=== PATIENT | female | born 1975 | race Asian ===

== ENCOUNTER → 2018-06-17 10:48 | Outpatient (CLI) | payer OTHER, SELFPAY ==
--- NOTE | 2018-06-17 | DI.MG.S_ITS ---
BILATERAL DIGITAL SCREENING MAMMOGRAM 3D/2D WITH CAD: 06/17/2018 CLINICAL: Routine screening. Comparison is made to exams dated: 06/16/2017 mammogram, 10/26/2015 mammogram, and 10/16/2015 mammogram - [facility]. The tissue of both breasts is extremely dense, which lowers the sensitivity of mammography. Current study was also evaluated with a Computer Aided Detection (CAD) system. No significant masses, calcifications, or other findings are seen in either breast. There has been no significant interval change. IMPRESSION: NEGATIVE There is no mammographic evidence of malignancy. A 1 year screening mammogram is recommended. This exam was interpreted at Station ID: [id number]. NOTE: For mammograms, a report in lay terms will be sent to the patient. Approximately 15% of breast malignancies will not be visualized mammographically. In the management of a palpable breast mass, a negative mammogram must not discourage biopsy of a clinically suspicious lesion. Electronically Signed By: Vivian kim/stevan:06/18/2018 08:31:52 letter sent: Normal Exam ACR BI-RADS Category 1: Negative 3341F
== END ==
PROVIDERS: PCP Family Medicine; Visit Provider Family Medicine
DX: Z12.31 Encounter for screening mammogram for malignant neoplasm of breast (principal)
CPT/HCPCS: 77063; 77067

== ENCOUNTER 2018-11-09 12:02 | Emergency (ER) | payer OTHER, SELFPAY ==
[2018-11-09 12:17] VITALS: BP 138/80; PULSE 70; RESP 16; TEMP 37.3; O2SAT 99; BMI 32.1
[2018-11-09 14:19] VITALS: BP 118/67; PULSE 61; RESP 17; O2SAT 100
--- NOTE | 2018-11-09 14:33 | ED.HA ---
HPI - Headache <Anat Bradshaw PA-C - Last Filed: 11/09/18 21:34> General Chief Complaint: Headache Stated Complaint: HEADACHE HIGH BLOOD PRESSURE Time Seen by Provider: 11/09/18 13:59 Source: patient Mode of arrival: ambulatory Limitations: no limitations History of Present Illness HPI Narrative: This 42-year-old female comes in due to headache and elevated blood pressure today. She states that headache is around her right eye and scientologist area, started late morning. She states it is similar but somewhat worse to a headache she had on Thursday. She took Tylenol with some aspirin and headache is significantly better and now, however she checked her blood pressure at home with the headache and it was 154/100. She is not hypertensive so she became concerned. She states that she felt a little bit warm and shaky earlier, but has not had any fever. She denies any light sensitivity. She states that it was hard to focus with the headache earlier but no vision change. She has not had any nausea or vomiting. She denies any recent illness or upper respiratory symptoms. She states that she does have history of occasional headaches that are similar to this, no history of migraines. She has eaten today and been drinking fluids and feels significantly better now. No trouble with walking, talking, daily activities despite the headache. She states that she mainly came in due to blood pressure concern Related Data Allergies Allergy/AdvReac Type Severity Reaction Status Date / Time No Known Drug Allergies Allergy Verified 11/09/18 15:03 Review of Systems <Anat Bradshaw PA-C - Last Filed: 11/09/18 21:34> Review of Systems ROS Unobtainable: All systems reviewed & are unremarkable except as noted in HPI and below PFSH <Anat Bradshaw PA-C - Last Filed: 11/09/18 21:34> Medical History No chronic problems (Chronic) Status post tubal ligation (Chronic) Social History (System 11/09/18 @ 15:03 by Renetta Love) Smoking Status: Never smoker Social History Smoking Status: Never smoker Exam <Anat Bradshaw PA-C - Last Filed: 11/09/18 21:34> Narrative Exam Narrative: GENERAL APPEARANCE: Patient sitting comfortably, in no distress. HEENT: PERRL, EOMI, TMs dull, scarred, and oropharynx, no sinus TTP NECK: Supple, no masses LUNGS: Clear to auscultation bilaterally. HEART: Rate and rhythm regular without murmur, normal S1 and S2, no S3 or S4. ABDOMEN: Soft, NT, ND, + BS x 4 quadrants NEUROLOGIC: Alert and oriented, normal speech, gait and coordination. No facial asymmetry MUSCULOSKELETAL: No point tenderness over the cervical spine or paraspinal musculature, Full Csp AROM Initial Vital Signs Initial Vital Signs: Vital Signs Temperature 99.1 F 11/09/18 12:17 Pulse Rate 70 11/09/18 12:17 Respiratory Rate 16 11/09/18 12:17 Blood Pressure 138/80 11/09/18 12:17 Pulse Oximetry 99 11/09/18 12:17 <Jose Ace DO - Last Filed: 11/15/18 23:44> Initial Vital Signs Initial Vital Signs: Vital Signs Temperature 99.1 F 11/09/18 12:17 Pulse Rate 70 11/09/18 12:17 Respiratory Rate 16 11/09/18 12:17 Blood Pressure 138/80 11/09/18 12:17 Pulse Oximetry 99 11/09/18 12:17 Course <Anat Bradshaw PA-C - Last Filed: 11/09/18 21:34> Vital Signs - 8 hr 11/09/18 14:19 Pulse Rate 61 Respiratory Rate 17 Blood Pressure [Left Arm] 118/67 Pulse Oximetry 100 <Jose Ace DO - Last Filed: 11/15/18 23:44> Vital Signs - 8 hr 11/09/18 14:19 Pulse Rate 61 Respiratory Rate 17 Blood Pressure [Left Arm] 118/67 Pulse Oximetry 100 Discharge Plan Departure Patient Disposition: Home Clinical Impression: Elevated blood pressure reading Headache Qualifiers: Headache type: unspecified Headache chronicity pattern: episodic headache Intractability: not intractable Qualified Code(s): R51 - Headache Discharge Date/Time: 11/09/18 14:59 Interventions: ED Discharge Assessment Last Done: 11/09/18 14:58 Instructions: DI for Headache, How to Monitor Your Blood Pressure at Home Activity Restrictions/Additional Instructions: As we talked about, you should return if you have any acutely worsening symptoms again, or new symptoms such as sudden vision change, vomiting, or fever, or if you get weakness in your limbs or face, or have difficulty talking. Otherwise, please rest quietly at home today since her headache is already much better. You can continue your [id number] pain medicine as needed. Please recheck your blood pressure at home a couple of times when you are seated and relaxed with your feet flat on the floor and your arm at higher level for 15 minutes and jot these down to take to your follow-up appointment. Take your home monitor when you go to see Dr. Lowe to check it against the one in the office. Your blood pressure is excellent here today once her pain has improved, and I suspect the elevated reading was related to pain. Referrals: Deysi Lowe MD [Physician] - <Jose Ace DO - Last Filed: 11/15/18 23:44> Cosign ED Attending Grahamature Attestation: I was immediately available in the department for consultation. Documentation has been reviewed. I agree with assessment and plan.
== END 2018-11-09 14:59 | disposition home or self-care (01) ==
PROVIDERS: Emergency Provider Internal Medicine
DX: R51 Headache (principal); R03.0 Elevated blood-pressure reading, without diagnosis of hypertension
CPT/HCPCS: 36591; 99282

== ENCOUNTER → 2018-11-25 09:57 | Outpatient (CLI) | payer OTHER, SELFPAY ==
--- NOTE | 2018-11-25 | DI.US.S_ITS ---
PROCEDURE: US ABDOMEN COMPLETE INDICATIONS: ABNORMAL LDH LEVELS TECHNIQUE: Real-time scanning was performed of the abdominal and retroperitoneal organs, with image documentation. COMPARISON: None. FINDINGS: Liver: Liver is normal in size and homogeneous in echotexture. Gallbladder: No findings of gallstones or sludge are seen. The gallbladder wall is not thickened, measuring 3 mm or less. No specific pericholecystic fluid is seen. The sonographic Fischer sign is negative. Biliary ducts: Intrahepatic bile ducts are non-dilated. Extrahepatic bile duct caliber measures 3 mm. Normal is 6-7 mm or less in diameter, or 10 mm or less post-cholecystectomy. Pancreas: The pancreas is not well-seen. Spleen: Spleen is normal in size and homogeneous in echotexture. Kidneys: Kidneys are normal in size and echotexture. Right kidney measures 13.1 cm long; left kidney measures 12.4 cm long. No hydronephrosis or nephrolithiasis. No solid masses. Aorta: Visualized aorta is normal in caliber at less than 3 cm. Iliacs: Proximal common iliac arteries are normal in caliber at less than 2.5 cm. IVC: Intrahepatic inferior vena cava is patent. Miscellaneous: No free abdominal fluid. IMPRESSION: The gallbladder demonstrates a normal sonographic appearance. No biliary dilatation is seen. Dictated by: Gt Reyes M.D. on 11/25/2018 at 12:25 Approved by: Gt Reyes M.D. on 11/25/2018 at 12:26
== END ==
PROVIDERS: PCP Family Medicine; Visit Provider Family Medicine
DX: R74.0 Nonspecific elevation of levels of transaminase and lactic acid dehydrogenase [LDH] (principal)
CPT/HCPCS: 76700

== ENCOUNTER → 2020-11-16 09:06 | Outpatient (CLI) | payer OTHER, SELFPAY ==
--- NOTE | 2020-11-16 09:07 | DI.US.S_ITS ---
PROCEDURE: US ABDOMEN LIMITED INDICATIONS: ABNORMAL LFTS TECHNIQUE: Real-time focused scanning was performed of the abdomen, with image documentation. COMPARISON: [facility], , US ABDOMEN COMPLETE, 11/25/2018, 10:09. FINDINGS: The liver is normal in size and demonstrates no focal lesions. The main portal vein demonstrates normal size and demonstrates normal appearing, hepatopetal flow. No findings of gallstones or sludge are seen. The gallbladder wall is not thickened, measuring 3 mm or less. No specific pericholecystic fluid is seen. The sonographic Fischer sign is negative. There is no biliary dilatation, the common bile duct measures 3 mm. No significant pancreatic abnormality is seen on these images. IMPRESSION: Normal ultrasound, with a normal appearing liver. Dictated by: Gt Reyes M.D. on 11/16/2020 at 9:47 Approved by: Gt Reyes M.D. on 11/16/2020 at 9:48
== END ==
PROVIDERS: PCP Family Medicine; Referring Provider Family Medicine; Visit Provider Family Medicine
DX: R74.8 Abnormal levels of other serum enzymes (principal)
CPT/HCPCS: 76705

== ENCOUNTER → 2021-06-03 13:58 | Outpatient (CLI) | payer OTHER, SELFPAY ==
--- NOTE | 2021-06-03 14:01 | DI.RAD.S_ITS ---
PROCEDURE: XR CHEST 2V INDICATIONS: CHEST XRAY TECHNIQUE: 2 views of the chest were acquired. COMPARISON: None. FINDINGS: Surgical changes and devices: None. Lungs and pleura: Lungs are clear. No pleural effusions or pneumothorax. Mediastinum: Mediastinal contours are normal. Heart size is normal. Bones and chest wall: No suspicious bony abnormalities. Soft tissues appear unremarkable. IMPRESSION: No acute cardiopulmonary abnormality. Dictated by: Arben Horn M.D. on 06/03/2021 at 14:19 Approved by: Arben Horn M.D. on 06/03/2021 at 14:19
== END ==
PROVIDERS: PCP Family Medicine; Referring Provider Family Medicine; Visit Provider Family Medicine
DX: R07.9 Chest pain, unspecified (principal); I10 Essential (primary) hypertension
CPT/HCPCS: 71046

== ENCOUNTER → 2021-07-03 15:37 | Outpatient (CLI) | payer OTHER, SELFPAY ==
--- NOTE | 2021-07-03 15:39 | DI.MG.S_ITS ---
BILATERAL DIGITAL SCREENING MAMMOGRAM 3D/2D WITH CAD: 07/03/2021 CLINICAL: Routine screening. Comparison is made to exams dated: 06/17/2018 mammogram, 06/16/2017 mammogram, and 10/26/2015 mammogram - [facility]. The tissue of both breasts is extremely dense, which lowers the sensitivity of mammography. Current study was also evaluated with a Computer Aided Detection (CAD) system. No significant masses, calcifications, or other findings are seen in either breast. There has been no significant interval change. IMPRESSION: NEGATIVE There is no mammographic evidence of malignancy. A 1 year screening mammogram is recommended. This exam was interpreted at Station ID: [id number]. NOTE: For mammograms, a report in lay terms will be sent to the patient. Approximately 15% of breast malignancies will not be visualized mammographically. In the management of a palpable breast mass, a negative mammogram must not discourage biopsy of a clinically suspicious lesion. Electronically Signed By: David hutchins/stevan:07/04/2021 08:09:52 letter sent: Normal Exam ACR BI-RADS Category 1: Negative 3341F
== END ==
PROVIDERS: PCP Family Medicine; Referring Provider Family Medicine; Visit Provider Family Medicine
DX: Z12.31 Encounter for screening mammogram for malignant neoplasm of breast (principal)
CPT/HCPCS: 77063; 77067

== ENCOUNTER 2021-11-07 11:10 | Outpatient (CLI) | payer OTHER, SELFPAY | END 2021-11-07 18:00 | disposition home or self-care (01) | LOC: PHYS 11:11 | PROVIDERS: Family Provider Family Medicine; PCP Family Medicine; Referring Provider Family Medicine; Visit Provider Family Medicine | DX: G56.01 Carpal tunnel syndrome, right upper limb (principal) | CPT/HCPCS: 95885; 95886; 95912 ==

== ENCOUNTER 2022-02-09 13:09 | Emergency (ER) | payer OTHER, SELFPAY ==
[2022-02-09 13:28] VITALS: BP 160/74; PULSE 62; RESP 16; TEMP 36.6; O2SAT 97; BMI 31.1
--- NOTE | 2022-02-09 14:46 | ED_ITS ---
HPI - Skin/Abscess/Foreign Bdy <Ta Torres PA-C - Last Filed: 02/09/22 15:00> General Chief complaint: Skin/Abscess/Foreign Body Stated complaint: Rash all over Time Seen by Provider: 02/09/22 13:26 History of Present Illness HPI narrative: Patient is a 46-year-old female to the emergency room today with complaint of rash on her neck and face. Patient states the rash initially started about 1 month ago while she was in [place]. Patient states that otherwise sick she left [place] and traveled to the [facility]. 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 Her main concern today that the rash worsened last night to where it is on her face. The rash itches it is not painful to touch. To Claritin yesterday and today that did not help. Denies starting any new medications, or using any new topical products. Also has never had this type of rash before. Denies any upper respiratory or GI concerns. Related Data Allergies Allergy/AdvReac Type Severity Reaction Status Date / Time No Known Drug Allergies Allergy Verified 11/09/18 15:03 Review of Systems <Ta Torres PA-C - Last Filed: 02/09/22 15:00> Review of Systems Narrative: R.O.S.: General: No fever, chills or fatigue. Cardiovascular: No chest pain or palpitations Respiratory: No S.O.B. HEENT: No congestion, ear pain, rhinorrhea, sore throat or tinnitus Gastrointestinal: No nausea or vomiting Skin: No rash or associated abnormalities Neurological: Awake, alert and in not apparent distress. No Headaches, changes in vision or other related neurological concerns. Patient History <Ta Torres PA-C - Last Filed: 02/09/22 15:00> Medical History No chronic problems Surgical History Status post tubal ligation Social History Smoking Status: Never smoker Smoking Status: Never smoker Substance Use Type: does not use Exam <Ta Torres PA-C - Last Filed: 02/09/22 15:00> Narrative Exam Narrative: Physical Exam: ? General: normal appearance, well developed, well nourished, alert, and awake. Not in acute distress. ? Head: Normocephalic, no lesions. Chest: Lungs CTAB, no rales, rhonchi or wheezes. ?? Heart: RRR, no murmurs, rubs or gallops. Respiratory: RRR no c/w/r Eyes: PERRLA, EOM's full, conjunctivae clear. ? Neuro: Physiological, no localizing findings, CN3-12 intact. ?? Extremities: Warm, well perfused, FROM, no deformities, no edema. ?? Skin: Patient has a macular rash to the base of her neck area and left upper cheek and orbital area. Rash is on an dry erythematous base. PSYCHIATRIC: The mood is good, no blunted affect. Speech is clear. Thought process is linear, thought content is appropriate. The voice is without significant inflection. Initial Vital Signs Initial Vital Signs: Vital Signs Temperature 97.8 F 02/09/22 13:28 Pulse Rate 62 02/09/22 13:28 Respiratory Rate 16 02/09/22 13:28 Blood Pressure 160/74 H 02/09/22 13:28 Pulse Oximetry 97 02/09/22 13:28 Oxygen Delivery Method 02/09/22 13:28 <Anuja Goyal DO - Last Filed: 02/10/22 10:08> Initial Vital Signs Initial Vital Signs: Vital Signs Temperature 97.8 F 02/09/22 13:28 Pulse Rate 62 02/09/22 13:28 Respiratory Rate 16 02/09/22 13:28 Blood Pressure 160/74 H 02/09/22 13:28 Pulse Oximetry 97 02/09/22 13:28 Oxygen Delivery Method 02/09/22 13:28 Course <Ta Torres PA-C - Last Filed: 02/09/22 15:00> Vital Signs Vital signs: Vital Signs - 8 hr 02/09/22 13:28 Temperature 97.8 F Pulse Rate 62 Respiratory Rate 16 Blood Pressure 160/74 H Pulse Oximetry 97 Oxygen Delivery Method Room Air <Anuja Goyal DO - Last Filed: 02/10/22 10:08> Vital Signs Vital signs: Vital Signs - 8 hr 02/09/22 13:28 Temperature 97.8 F Pulse Rate 62 Respiratory Rate 16 Blood Pressure 160/74 H Pulse Oximetry 97 Oxygen Delivery Method Room Air MDM - Skin/Abscess/Foreign Bdy <Ta Torres PA-C - Last Filed: 02/09/22 15:00> [facility] Narrative Medical decision making narrative: Patient is a 46-year-old female presents to emergency today with complaint rash to her neck and face area. Patient states the rash started about a month ago and was on her neck. Patient states she awoke this morning with a rash on her left face. On physical exam the patient has what appears to be contacts or psoriatic form dermatitis. Patient advised to use OTC steroids for it with itching and to use Vaseline for the dryness. Patient also advised to contact her primary care provider for referral to Dermatology. Discharge Plan Departure Patient Disposition: Home Clinical Impression: Dermatitis, Psoriasiform dermatitis Instructions: Contact Dermatitis Activity Restrictions/Additional Instructions: *You have been diagnosed with [Dermatitis]. Dermatitis could arise from a contact origin or from a psoriatic lesion. We do not have the name of a [employer] Project Manager in [place] that you can contact, not suggesting contact your primary care provider for dermatology referral. I suggest you continue to try to discover the source of the allergen. I would evaluate creams deodorant soaps and detergents digit current use. I also suggest she use agay-vqa-bckurjx steroid cream for the itching on your torso. Refrain from using steroid cream on your face. I also suggest she use Vaseline for the extreme dry areas. *What to do: *Please continue to take your regular medications as directed. [ ] New medication prescriptions sent to your pharmacy: [ ] [ ] New medication written as a paper prescription [x ] No new medications given *Please follow up with your primary care provider in 2-3 days, call for an appointment. Let them know you were seen in the Emergency Department and that we ask that you be seen in follow up. We will electronically transmit a record of today's note if your PCP is in our system *If you do not have a primary care provider please contact the [facility] Resource line at [phone]. They will ask some questions about your medical history and help get you set up with a doctor in the community. *Return to Emergency Department if you should have any new, worsening or concerning symptoms, such as [fever greater than 101 F, shaking chills, worsening pain, persistent vomiting or other bothersome symptoms] Referrals: Deysi Lowe MD [Primary Care Provider] - Visit Report Forms: Patient Portal/API <Anuja Goyal DO - Last Filed: 02/10/22 10:08> Cosign ED Attending Miladis Attestation: I was immediately available in the department for consultation. Documentation has been reviewed. I agree with assessment and plan.
[2022-02-09 15:01] VITALS: BP 159/90
== END 2022-02-09 15:03 | disposition home or self-care (01) ==
PROVIDERS: Emergency Provider Physician Assistant; Family Provider Family Medicine; PCP Family Medicine
DX: L30.9 Dermatitis, unspecified (principal)
CPT/HCPCS: 99281

== ENCOUNTER → 2022-10-08 12:11 | Outpatient (CLI) | payer BC, SELFPAY ==
--- NOTE | 2022-10-08 | DI.MG.S_ITS ---
BILATERAL DIGITAL SCREENING MAMMOGRAM 3D/2D WITH CAD: 10/08/2022 CLINICAL: Routine screening. Comparison is made to exams dated: 07/03/2021 mammogram, 06/17/2018 mammogram, and 06/16/2017 mammogram - [facility]. Both breasts are extremely dense, which lowers the sensitivity of mammography (category d />75% glandular tissue). Current study was also evaluated with a Computer Aided Detection (CAD) system. No significant masses, calcifications, or other findings are seen in either breast. There has been no significant interval change. IMPRESSION: NEGATIVE There is no mammographic evidence of malignancy. A 1 year screening mammogram is recommended. Based on the Tyrer Cuzick model (a risk assessment model) the patient's lifetime risk is 18.0% and her 10 year risk is 3.7%. According to the ACR, ACS, and NCCN guidelines, an annual breast MRI exam along with mammogram is recommended if the patient's lifetime risk is 20% or greater. This exam was interpreted at Station ID: [id number]. NOTE: For mammograms, a report in lay terms will be sent to the patient. Approximately 15% of breast malignancies will not be visualized mammographically. In the management of a palpable breast mass, a negative mammogram must not discourage biopsy of a clinically suspicious lesion. Electronically Signed By: Vivian kim/stevan:10/08/2022 14:11:24 letter sent: Normal Exam ACR BI-RADS Category 1: Negative 3341F
== END ==
PROVIDERS: Family Provider Family Medicine; PCP Family Medicine; Referring Provider Family Medicine; Visit Provider Family Medicine
DX: Z12.31 Encounter for screening mammogram for malignant neoplasm of breast (principal)
CPT/HCPCS: 77063; 77067

== ENCOUNTER → 2023-11-25 14:32 | Outpatient (CLI) | payer BC, SELFPAY ==
--- NOTE | 2023-11-25 | DI.MG.S_ITS ---
BILATERAL DIGITAL SCREENING MAMMOGRAM 3D/2D WITH CAD: 11/25/2023 CLINICAL: Routine screening. Comparison is made to exams dated: 10/08/2022 mammogram, 07/03/2021 mammogram, and 06/17/2018 mammogram - [facility]. Both breasts are heterogeneously dense, which may obscure small masses (category c / 51-75% glandular tissue). Current study was also evaluated with a Computer Aided Detection (CAD) system. No significant masses, calcifications, or other findings are seen in either breast. There has been no significant interval change. IMPRESSION: NEGATIVE There is no mammographic evidence of malignancy. A 1 year screening mammogram is recommended. Based on the Tyrer Cuzick model (a risk assessment model) the patient's lifetime risk is 12.2% and her 10 year risk is 2.6%. According to the ACR, ACS, and NCCN guidelines, an annual breast MRI exam along with mammogram is recommended if the patient's lifetime risk is 20% or greater. This exam was interpreted at Station ID: [id number]. NOTE: For mammograms, a report in lay terms will be sent to the patient. Approximately 15% of breast malignancies will not be visualized mammographically. In the management of a palpable breast mass, a negative mammogram must not discourage biopsy of a clinically suspicious lesion. Electronically Signed By: Vivian kim/stevan:11/25/2023 16:27:48 letter sent: Normal Exam ACR BI-RADS Category 1: Negative 3341F
== END ==
PROVIDERS: Family Provider Family Medicine; PCP Family Medicine; Referring Provider Family Medicine; Visit Provider Family Medicine
DX: Z12.31 Encounter for screening mammogram for malignant neoplasm of breast (principal); R92.333 Mammographic heterogeneous density, bilateral breasts
CPT/HCPCS: 77063; 77067

== ENCOUNTER → 2024-11-30 08:06 | Outpatient (CLI) | payer BC, SELFPAY ==
--- NOTE | 2024-11-30 08:07 | DI.MG.S_ITS ---
MM screening mammo BI: 11/30/2024. BI-RADS: 1 CLINICAL: 48-year old female for bilateral screening mammogram. Tyrer-Cuzick lifetime risk of 13.4%. No personal or first-degree family history of breast cancer. PRIOR EXAMS 11/25/2023, 10/08/2022, 07/03/2021, 06/17/2018, 06/16/2017, 10/26/2015, 10/16/2015. MAMMOGRAPHY TECHNIQUE: 2D and 3D (tomosynthesis) digital mammographic views obtained, with additional images as needed for full coverage. Current study was also evaluated with a Computer Aided Detection (CAD) system. DENSITY D. The breasts are extremely dense, which lowers the sensitivity of mammography. MAMMOGRAPHY FINDINGS Bilateral: No suspicious mass, asymmetry, microcalcification, or other abnormality seen. No significant change from comparison. IMPRESSION: * No evidence of malignancy. RECOMMENDATIONS Bilateral * Annual screening mammography. OVERALL ASSESSMENT CATEGORY BI-RADS-1: Negative. The [employer] [place] [employer] recommends annual screening mammography beginning at age 40 for women with average risk of breast cancer. ELECTRONICALLY SIGNED: Alissa Doran M.D. on 11/30/2024 at 03:17:33 PM PT Interpreting Station ID: [id number]
== END ==
PROVIDERS: Family Provider Family Medicine; PCP Family Medicine; Referring Provider Family Medicine; Visit Provider Family Medicine
DX: Z12.31 Encounter for screening mammogram for malignant neoplasm of breast (principal); R92.343 Mammographic extreme density, bilateral breasts
CPT/HCPCS: 77063; 77067

== ENCOUNTER 2025-04-13 11:37 | Day surgery (SDC) | payer OTHER, SELFPAY ==
--- NOTE | 2025-04-13 07:19 | PM.HP.IH.1 ---
History of Present Illness History of Present Illness Date Patient Seen: 04/13/25 Time Patient Seen: 07:19 Chief complaint: Screening Colonoscopy Narrative: 49yo F presents for screening colonoscopy today. [facility] Medical History (Updated 04/13/25 @ 07:20 by Que Church MD) No chronic problems Surgical History Status post tubal ligation Meds Home Medications and Allergies Home Medications ?Medication ?Instructions ?Recorded ?Confirmed ?Type sodium,potassium,mag sulfates 17.5 See Rx Instructions PO .COMPLEX 04/12/25 Rx gram-3.13 gram-1.6 gram oral soln #354 mL (Suprep Bowel Prep Kit) sodium,potassium,mag sulfates 17.5 See Rx Instructions PO .COMPLEX 04/12/25 Rx gram-3.13 gram-1.6 gram oral soln #354 mL (Suprep Bowel Prep Kit) Allergies Allergy/AdvReac Type Severity Reaction Status Date / Time No Known Drug Allergies Allergy Verified 11/09/18 15:03 Exam Narrative Exam Narrative: Const General: healthy appearing, comfortable and no acute distress Orientation: alert and oriented x3 HENMT Ears: hearing grossly normal bilaterally Eyes Visual Ibrahim: normal visual ibrahim by confrontation Conjunctivae: conjunctivae normal Sclera: sclerae normal EOM: EOM intact bilaterally Resp Effort & Inspection: normal respiratory effort and able to speak in complete sentences Cardio Rate: regular rate GI Palpation: soft (NT) Extrem General: no pedal edema and no calf tenderness Assessment & Plan Assessment and plan (1) Encounter for screening colonoscopy: Status: Acute Plan Plan screening colonoscopy, possible polypectomy. The risks, benefits and options regarding the procedure were explained to the patient in detail. Risk discussion included but not limited to: bleeding, perforation, unable to reach cecum, missed lesion. The patient was encouraged to ask questions and they were answered to their satisfaction. The patient understands and is agreeable to proceed. Time-Based Coding :: [TOTAL MINUTES] spent with patient and on the chart (including review of chart, obtaining history, exam, reviewing outside data, placing orders, documenting exam and treatment plan, and counseling patient) on [DATE]. PROFEE Squad Sergeant Document charge(s): Yes Charge Codes Inpatient/observation care including admit and discharge same day: [id number]
[2025-04-13 11:57] VITALS: BP 135/83; PULSE 67; RESP 16; TEMP 36.1; O2SAT 96
[2025-04-13] MEDS: LACTATED RINGERS 1,000 ML 42 ML IV (12:15)
--- NOTE | 2025-04-13 12:36 | P.OP.COLON_ITS ---
Operative Date/Time/Diagnoses Date of procedure: 04/13/25 Time of procedure: 12:52 Pre-op diagnosis: Screening colonoscopy Post-op diagnosis: same Procedure & Clinicians Study performed: Screening colonoscopy Same procedure(s) as scheduled: Yes Indications: 49yo F, screening colonoscopy Surgeon: Que Church Anesthesia Type: MAC +/- Procedure Notes SCOAP/Timeout: Performed Procedure in detail: Colonoscopy Patient placed in left lateral recumbent position. Time out was performed. Procedural sedation was administered by anesthesia. Examination began with a t horough inspection of the perianal area. There was no evidence of fissures, fistulae, external hemorrhoids or cutaneous malignancy. The colonoscope was then placed into the rectum and the lumen was insufflated with carbon dioxide. The scope was carefully advanced forward. Ultimately the cecum was intubated and confirmed by identification of the ileocecal valve, the appendiceal orifice and the confluence of the taenia. The scope was then slowly withdrawn examining the colon thoroughly in all directions. In the rectum, retroflexion of the scope was performed for inspection of the distal rectum and anal canal. ?Significant colonoscopy findings: ?1. Quality of the preparation-good, [place] 2-3, improved with irrigation/suction ?2. Normal screening colonoscopy. No polyp, mass, stricture. Scope withdrawal time: 6 minutes Specimen(s): none sent Complications: none Impression: Normal screening colonoscopy Post-procedure Recommendations: Colonoscopy in 10 years Plan for aftercare: PACU then home Follow up: as needed Disposition: PACU
[2025-04-13 12:52] VITALS: BP 117/71; PULSE 65; RESP 16; TEMP 36.3; O2SAT 98
[2025-04-13 12:57] VITALS: BP 110/65; PULSE 58; RESP 16; O2SAT 98
[2025-04-13 13:02] VITALS: BP 120/77; PULSE 59; RESP 16; O2SAT 100
[2025-04-13 13:10] VITALS: BP 114/72; PULSE 59; RESP 16; TEMP 36.3; O2SAT 100
== END 2025-04-13 13:18 | disposition home or self-care (01) ==
PROVIDERS: Family Provider Family Medicine; PCP Family Medicine; Referring Provider Surgery; Visit Provider Surgery
PROC: 0DJD8ZZ Inspection of Lower Intestinal Tract, Via Natural or Artificial Opening Endoscopic (ICD-10-PCS; CPT 45378; principal; 2025-04-13 13:00)
DX: Z12.11 Encounter for screening for malignant neoplasm of colon (principal)
CPT/HCPCS: 45378; 81025; J2704; J7120